=== PATIENT | male | born 1995 | race Caucasian/White ===

== ENCOUNTER 2017-04-12 18:35 | Emergency (ER) | payer OTHER ==
--- NOTE | ~2017-04-12 | CR20 ---
[facility] [place]. [facility] [place] A Service of [facility] & [facility] / [facility] RADIOLOGY TEXT RESULTS PATIENT: TEE OTOOLE LOCATION: SED : [birth year] UNIT #: [id number] AGE: [address]: EMMA KAPOOR PA-C SEX: M ORDER DR: [id number] [id number] E MR#: [id number] Acc #: [id number] NAME: TEE OTOOLE : 1995 SEX: M STUDY DATE/TIME: 04/12/2017 19:02 UNIT: SED ROOM: STUDY DESCRIPTION: CR Ankle Min 3 Views Lt Attending Physician: Emma Kapoor Pa-C Ordering Physician: Emma Kapoor Pa-C Primary Care Physician: Carmencita Souza M.D. MEDICAL IMAGING REPORT This report is preliminary unless electronic signature is present. EXAM Left ankle 3 views 04/12/2017 HISTORY Left ankle pain for 3 days. Stepped down incorrectly on left foot while walking up steps 3 days ago. FINDINGS AP, lateral, and oblique projections of the ankle show satisfactory integrity of the joint mortise with a smooth articular surface. There is no identifiable fracture, dislocation, or radiopaque foreign body. IMPRESSION Normal ankle. Dictated by... Pankaj Santos M.D. THIS IS AN ELECTRONICALLY VERIFIED REPORT Pankaj Santos M.D. at 04/15/2017 8:26 AM CLAIRE/mag TD: 04/12/2017 23:40 JOB #: [id number] MEDICAL IMAGING REPORT Page 1 of 1
[~2017-04-12 18:35] MED LIST: BENADRYL PO; CELEXA PO; IBUPROFEN400 MG; PRILOSEC20 MG PO
== END 2017-04-12 20:00 | disposition home or self-care (01) ==
LOC: SED 18:35
DX: S93.402A Sprain of unspecified ligament of left ankle, initial encounter (principal); S93.602A Unspecified sprain of left foot, initial encounter; K21.9 Gastro-esophageal reflux disease without esophagitis; J45.909 Unspecified asthma, uncomplicated; Z79.899 Other long term (current) drug therapy; Y92.69 Other specified industrial and construction area as the place of occurrence of the external cause; X50.9XXA Other and unspecified overexertion or strenuous movements or postures, initial encounter; Y99.0 Civilian activity done for income or pay
CPT/HCPCS: 29540; 73610; 99283